=== PATIENT | female | born 1975 | race Two or more races ===

== ENCOUNTER 2023-01-16 08:47 | Emergency (ER) | payer OTHER ==
[2023-01-16 08:59] VITALS: RESP 18; TEMP 98.2; BMI 28.3
[2023-01-16] MEDS ORDERED: ACETAMINOPHEN 1000 MG/100 ML BAG IVPB ONE (09:25)
[2023-01-16] MEDS ORDERED: SODIUM CHLORIDE 1,000 ML IV ONE (09:25)
[2023-01-16] MEDS ORDERED: ACETAMINOPHEN INJECTION 100 ML IVPB ONE (09:47)
[2023-01-16 10:01] LABS: BASO % 0.6 % (0-2.0); EOS % 0.7 % (0-4.5); HEMATOCRIT 29.5 % (32.4-45.2); HEMOGLOBIN 9.8 GM/dL (10.7-15.3); LYMPH % 16.8 % (8-40); MCHC 33.4 g/dl (32.0-36.0); MEAN CELL VOLUME 69.1 fl (80-96); MEAN PLT VOLUME 7.2 fl (7.5-11.1); MONO % 6.6 % (3.8-10.2); NEUT % 75.3 % (42.8-82.8); RBC 4.27 M/mm3 (3.60-5.2); RDW 15.3 % (11.6-15.6); WHITE BLOOD COUNT 13.9 K/mm3 (4.0-10.0)
[2023-01-16 10:05] LABS: PLATELET COUNT 1284 10^3/uL (134-434)
[2023-01-16 10:19] LABS: CALCIUM 9.8 mg/dL (8.5-10.1)
[2023-01-16 10:20] LABS: ALBUMIN 2.7 g/dl (3.4-5.0); BLOOD UREA NITROGEN 10.2 mg/dL (7-18)
[2023-01-16 10:23] LABS: CREATININE 0.5 mg/dL (0.55-1.3)
[2023-01-16 10:24] LABS: BILIRUBIN,TOTAL 0.2 mg/dL (0.2-1); TOT PROT 7.9 g/dl (6.4-8.2)
[2023-01-16 11:28] LABS: PH,URINE 7.5 (5.0-8.0); URINE APPEARANCE CLEAR; URINE BILIRUBIN NEGATIVE (NEGATIVE); URINE COLOR YELLOW; URINE GLUCOSE (UA) NEGATIVE (NEGATIVE); URINE KETONE NEGATIVE (NEGATIVE); URINE LEUK ESTERASE NEGATIVE (NEGATIVE); URINE NITRITE NEGATIVE (NEGATIVE); URINE PROTEIN NEGATIVE (NEGATIVE); URINE UROBILINOGEN 0.2 mg/dL (0.2-1.0)
[2023-01-16 11:39] LABS: HCG,QUALITATIVE URINE Negative
[2023-01-16 13:37] VITALS: BP 105/69; PULSE 80
== END 2023-01-16 14:13 | disposition home or self-care (01) ==
LOC: JER 08:47
PROC: 3E033NZ Introduction of Analgesics, Hypnotics, Sedatives into Peripheral Vein, Percutaneous Approach (ICD-10-PCS; principal; 2023-01-16)
PROC: 3E0337Z Introduction of Electrolytic and Water Balance Substance into Peripheral Vein, Percutaneous Approach (ICD-10-PCS; 2023-01-16)
DX: N20.0 Calculus of kidney (principal); D75.839 Thrombocytosis, unspecified
CPT/HCPCS: 36415; 74176-TC; 80053; 81003; 84703; 85025; 99284-25